=== PATIENT | male | born 1970 | race Caucasian/White ===

== ENCOUNTER 2023-10-02 06:56 | Day surgery (SDC) | payer MEDICAID ==
[~2023-10-02] VITALS: Ht 167.6 cm; Wt 68.7 kg
[2023-10-02] MEDS ORDERED: MIDAZOLAM HCL 5 MG/5 ML VIAL ONE (07:44)
[2023-10-02] MEDS ORDERED: MEPERIDINE 100 MG INJ. 100 MG/ML VIAL ONE (07:44)
[2023-10-02] MEDS ORDERED: SIMETHICONE 40 MG/0.6 ML ML ONE (07:44)
[2023-10-02 11:00] VITALS: O2SAT 99
[2023-10-02 17:53] VITALS: BP_SYST 118; PULSE 60; RESP 12
== END 2023-10-02 09:03 | disposition home or self-care (01) ==
LOC: SDS 06:56 → SMU 06:59 → SDS 09:03
PROVIDERS: ATTEND Student in an Organized Health Care Education/Training Program
DX: Z12.11 Encounter for screening for malignant neoplasm of colon (principal); K64.8 Other hemorrhoids; Z80.0 Family history of malignant neoplasm of digestive organs; Z86.010 Personal history of colon polyps
CPT/HCPCS: 45378; 99152; G0378; J2250; J2175